=== PATIENT | female | born 1980 | race Caucasian/White ===

== ENCOUNTER 2017-06-21 11:35 | Emergency (ER) | payer MEDICAID ==
[2017-06-21 11:41] VITALS: TEMP 97.9
[2017-06-21 12:49] LABS: COLOR YELLOW; LEUKOCYTE ESTERASE,URINE 1+ (NEGATIVE); NITRITE,URINE NEGATIVE (NEGATIVE)
[2017-06-21 13:04] LABS: MUCUS TRACE /lpf (NONE-1+)
--- NOTE | 2017-06-21 13:04 | EDPHY ---
General Narrative: CHIEF COMPLAINT: Finger injury, urinary complaints HISTORY OF PRESENT ILLNESS: Patient is 2 complaints. The 1st is a right middle finger injury. She became upset yesterday when working with a backpack and punched it. She sustained a laceration over the right middle finger PIP joint. Minimally painful. Worse with flexion. No numbness or tingling distally. No hand or wrist pain. No elbow pain. Tetanus up-to-date less than 6 years ago. She also complains of urinary tract infection. She says she can tell by the odor of the urine. She has minimal discomfort but this is totally starts for her. She says in the past this has happened and then progresses to severe infection. She says that the was been treated well with Macrobid. She has no blood in the urine. No trauma or injury. No flank pain. No nausea or vomiting. REVIEW OF SYSTEMS: Ten systems reviewed and are negative unless otherwise noted in the HPI PCP: None SPECIALISTS: None PAST MEDICAL HISTORY: Fibromyalgia, rage disorder PAST SURGICAL HISTORY: Right hand boxer's fracture repair, oral maxillofacial surgery FAMILY HISTORY: Noncontributory EXAMINATION General Appearance: Alert, no distress Head: normocephalic, atraumatic Eyes: Pupils equal and round, no conjunctival pallor or injection ENT, Mouth: Mucous membranes moist. Airway patent Neck: Normal inspection, supple, non-tender Respiratory: No retractions or distress. Cardiovascular: Regular rate. Pulses intact distally. Brisk cap refill the fingers of the right hand. Gastrointestinal: Abdomen is soft and nontender. No rigidity or distention. Neurological: A&O, nonfocal, normal gait. Good strength of the interossei on the right hand. No wrist drop Skin: Warm and dry, no rash. Superficial laceration of the right middle finger , dorsally over the PIP. There is no exposure of the extensor tendon. No foreign body. This is subacute in appearance. No bleeding. Neurovascular intact distal to the laceration Extremities: Mild tenderness of the right middle finger posteriorly. There is no tenderness of the hand or right snuffbox. Range of motion is fully intact without deficit. No deformity or angular rotation of the fingers. Psychiatric: Mood and affect normal DIFFERENTIAL DIAGNOSES: Including but not limited to sprain, superficial laceration, laceration, fracture, UTI MDM: 1:05 p.m. Right middle finger punch injury with superficial laceration over PIP. x-ray ordered. Neuro intact distal to this. Urinary complaints with evidence of UTI. Symptoms are consistent with her previous UTIs, thus I will treat her empirically with urine culture pending. Her laceration is well outside the window for primary closure. Additionally, it is superficial enough that it could be treated with Steri-Strips and delayed closure. Tetanus is up-to-date. 1:40 p.m. X-ray reveals no acute fracture or dislocation. The finger laceration has been irrigated copiously. I will not close this by primary closure due to the delayed presentation. I will place her on antibiotics for the urinary tract infection. The will be covered with Steri-Strips and we will splint the finger. She is to remove the splint in 5-7 days. The stay should she be left in place until falls off naturally. ER precautions for any redness, purulence, pain in the finger. She is comfortable with this plan. I provided hand surgeon referral for. I have ordered a urine culture due to her recurrent UTIs. She is discharged in stable condition, neurovascular intact - History Smoking Status: Current every day smoker - Objective Vital Signs: Initial Vital Signs Temperature (C) 97.9 F 06/21/17 11:37 Heart Rate 99 06/21/17 11:37 Respiratory Rate 18 06/21/17 11:37 Blood Pressure 121/73 H 06/21/17 11:37 O2 Sat (%) 95 06/21/17 11:37 O2 Delivery Mode Room Air Allergies/Adverse Reactions: lithium Allergy (Uncoded 06/21/17 11:41) Home Medications: Medication Instructions Recorded Nitrofurantoin Monohyd/M-Cryst 100 mg PO BID #14 capsule 06/21/17 [Macrobid 100 mg Capsule] Departure - Departure Disposition: Home, Routine, Self-Care Clinical Impression: UTI (urinary tract infection), Laceration of middle finger with delay in treatment, Sprain of finger of right hand Condition: Good Instructions: Urinary Tract Infection in Women (ED), Finger Sprain (ED), Laceration Without Closure (ED) Additional Instructions: 1. Medication as prescribed to completion 2. Follow up with hand surgeon for the right finger injury 3. ED precautions as discussed Referrals: NONE *PRIMARY CARE P,. [Primary Care Provider] - As per Instructions [facility],. [Clinic] - As per Instructions Abhi Petty MD [Medical Doctor] - As per Instructions Prescriptions: Nitrofurantoin Monohyd/M-Cryst [Macrobid 100 mg Capsule] 100 mg PO BID #14 capsule
[2017-06-21 13:06] LABS: RBC,URINE NONE SEEN /hpf (0-3)
[2017-06-21 13:52] VITALS: BP 108/73; PULSE 84; RESP 16; O2SAT 98
== END 2017-06-21 14:07 | disposition home or self-care (01) ==
DX: S61.212A Laceration without foreign body of right middle finger without damage to nail, initial encounter (principal); S63.612A Unspecified sprain of right middle finger, initial encounter; N39.0 Urinary tract infection, site not specified; F17.200 Nicotine dependence, unspecified, uncomplicated; W22.8XXA Striking against or struck by other objects, initial encounter

== ENCOUNTER 2018-09-26 16:24 | Emergency (ER) | payer MEDICAID ==
[2018-09-26 16:34] VITALS: BP 101/61
--- NOTE | 2018-09-26 17:06 | EDPHY ---
H & P Stated Complaint: VARIABLE INF LESIONS OVER BODY L BREAST AND AXILLA Time Seen by Provider: 09/26/18 16:55 HPI/ROS: CHIEF COMPLAINT: Multiple skin lesions, left breast erythema times 3-5 days HISTORY OF PRESENT ILLNESS: 37-year-old female up-to-date tetanus, denies IV drug use or methamphetamine abuse, complaining of multiple nonpruritic skin lesions to her arms as well as to her left breast. She has been picking at these areas. She denies known history of MRSA but does state that the person she has been staying with has history of cutaneous MRSA. She denies: Fever, chills, flu-like symptoms, chest pain, back pain, abdominal pain, intraoral lesions, genitalia lesions, sloughing of skin, itching. PRIMARY CARE PROVIDER: [facility] REVIEW OF SYSTEMS: 10 systems reviewed and negative with the exception of the elements mentioned in the history of present illness PAST MEDICAL & SURGICAL HISTORY: No pertinent medical or surgical history . Tetanus up-to-date. No IV drug use history. No known cutaneous MRSA history. SOCIAL HISTORY: No IV drug use history PHYSICAL EXAM (Prior to examination, patient consented to physical exam, hands were washed and my usual and customary physical exam procedures followed) 1) GENERAL: Well-developed, well-nourished, alert and oriented. Appears to be in no acute distress. Appears nontoxic 2) HEAD: Normocephalic, atraumatic 3) HEENT: Pupils equal, round, reactive to light bilaterally. Sclera anicteric. Nasopharynx, oropharynx, clear, no lesions. Moist mucous membranes. No lesions. 4) NECK: Full range of motion, no meningeal signs. 5) LUNGS: Clear auscultation bilaterally, no wheezes, no rhonchi, no retractions. 6) HEART & CHEST WALL (with nurse Mindy at bedside): On the patient's left breast between the 1:00 a.m. and 3:00 a.m. positions he has erythema. There is no fluctuance. No crepitus. No drainage. Tender to palpation left axilla with no definitive adenopathy. Regular rate and rhythm, no murmur, no heave, no gallop. 7) ABDOMEN: No guarding, no rebound, no focal tenderness, negative McBurney's, negative Hutchinson's, negative Rovsing's, negative peritoneal sign, 8) MUSCULOSKELETAL: Bilateral upper extremities multiple for ocular lesions with no lymphangitic streaking. No crepitus. Distal neurovascular status is normal with brisk pulses. Soft compartments. Full pain-free range of motion all joints of the upper extremities. Otherwise, Moving all extremities, no focal areas of tenderness, no obvious trauma. No peripheral edema or discoloration. 9) BACK: No CVA tenderness, no midline vertebral tenderness, no fluctuance, no step-off, no obvious trauma, no visual or palpable abnormality. 10) SKIN: No rash, no petechiae. 11) Psychiatric: Patient is oriented X 3, there is no agitation. DIFFERENTIAL DIAGNOSIS: [ In no particular order including but not limited to necrotizing fasciitis, mastitis, furunculosis, carbunculosis - Personal History LMP (Females 10-55): Now Current Tetanus Diphtheria and Acellular Pertussis (TDAP): Yes - Medical/Surgical History Hx Asthma: No Hx Chronic Respiratory Disease: No Hx Diabetes: No Hx Cardiac Disease: No Hx Renal Disease: No Hx Cirrhosis: No Hx Alcoholism: No Hx HIV/AIDS: No Hx Splenectomy or Spleen Trauma: No Other PMH: UTI's. fibromyalgia. - Social History Smoking Status: Current every day smoker Constitutional: Initial Vital Signs Temperature (C) 36.9 C 09/26/18 16:32 Heart Rate 101 H 09/26/18 16:32 Respiratory Rate 18 09/26/18 16:32 Blood Pressure 101/61 09/26/18 16:32 O2 Sat (%) 99 09/26/18 16:32 O2 Delivery Mode Room Air Allergies/Adverse Reactions: lithium Allergy (Uncoded 09/26/18 16:31) Home Medications: Medication Instructions Recorded Cephalexin [Keflex] 500 mg PO TID 10 Days cap 09/26/18 Sulfamethox/Tmp 800/160 mg 1 tab PO BID@1000,2200 10 Days tab 09/26/18 [Bactrim Ds] Medical Decision Making ED Course/Re-evaluation: 5:03 p.m.: Patient has multiple for angular lesions on her bilateral forearms as well as an area of erythema left breast region between 1:00 a.m. And 3:00 a.m.. There is no nipple discharge. No fever no chills. At this time I do not think that hospitalization is indicated. I have recommended initiation of oral antibiotic therapy. Dual therapy Bactrim and Keflex. Today is Saturday. Recommend recheck on Saturday with her PCP. In the Meantime given my usual customary wound precautions instructions. Care of patient under supervision secondary supervising physician Dr Bond . Departure - Departure Disposition: Home, Routine, Self-Care Clinical Impression: Furuncle of upper arm Condition: Good Instructions: Furunculosis and Carbunculosis (ED) Additional Instructions: Return to the ER if you develop redness, swelling, discharge, warmth to the wound, red streaks going up your arm, fever, chills, or any other symptoms that concern you. Referrals: [facility],. [Clinic] - 09/29/18 Prescriptions: Cephalexin [Keflex] 500 mg PO TID 10 Days cap Sulfamethox/Tmp 800/160 mg [Bactrim Ds] 1 tab PO BID@1000,2200 10 Days tab
== END 2018-09-26 17:21 | disposition home or self-care (01) ==
DX: L02.423 Furuncle of right upper limb (principal); L02.424 Furuncle of left upper limb

== ENCOUNTER 2018-11-19 09:11 | Emergency (ER) | payer MEDICAID ==
[2018-11-19 09:20] VITALS: BP 154/100
--- NOTE | 2018-11-19 09:25 | EDPHY ---
H & P Time Seen by Provider: 11/19/18 09:24 HPI/ROS: CHIEF COMPLAINT: Mental health hold HISTORY OF PRESENT ILLNESS: Patient arrives on a mental health hold by police. According to the hold her boyfriend said that she "threatened to kill herself if he kicked her out of his apartment."Patient says she has schizoaffective disorder and has been off medications for 2 years. She says that she feels like "nobody cares" and she has nothing to live for. She says she currently denies suicidal ideation or plan. No recent medical issues except intermittent chest tightness with her anxiety over the past week. REVIEW OF SYSTEMS: Eye: no change in vision ENT: no sore throat Cardiac: No palpitations or syncope Pulmonary: no cough or SOB Abdomen: no vomiting, diarrhea, abdominal pain Musculoskeletal: no back pain Skin: no rash Neuro: no headache Constitutional: no fever : no urinary symptoms A comprehensive 10 point review of systems is otherwise negative aside from elements mentioned in the history of present illness. PAST MEDICAL HISTORY: Includes bipolar disorder, PTSD, previous UTI Social history: Denies alcohol, smokes marijuana General Appearance: Alert and conversant, cooperative. Eyes: No scleral icterus. ENT, Mouth: Normal mucous membranes. Respiratory: Normal respiratory effort, breath sounds equal, lungs are clear to auscultation. No wheezing. Cardiovascular: Regular rate and rhythm. Gastrointestinal: Abdomen is soft and non tender. Neurological: Alert, face symmetric, normal motor and sensory in extremities. Skin: Warm and dry, no rashes. Musculoskeletal: No peripheral edema. Psychiatric: Moderately anxious. Emergency Department course/MDM: Arrives on a mental health hold. Appears clinically sober. Does not have urinary symptoms. Plan for screening labs and mental health evaluation. 1353: Patient had mental health evaluation and is the recommendation of the drying machine tender and the plan consultant psychiatrist Dr. Hola Ortega the hold be lifted the patient be discharged. Does not appear to be a danger to herself or gravely disabled or a danger to others at this time. Referred to [facility]. Smoking Status: Current every day smoker Constitutional: Initial Vital Signs Temperature (C) 36.5 C 11/19/18 09:15 Heart Rate 108 H 11/19/18 09:15 Respiratory Rate 18 03/20/19 09:15 Blood Pressure 154/100 H 11/19/18 09:15 O2 Sat (%) 96 11/19/18 09:15 O2 Delivery Mode Room Air Allergies/Adverse Reactions: lithium Allergy (Uncoded 09/26/18 16:31) Home Medications: Medication Instructions Recorded NK [No Known Home Meds] 11/19/18 Medical Decision Making - Data Points Laboratory Results: Laboratory Results 11/19/18 09:50 11/19/18 09:50 11/19/18 11/19/18 11/19/18 11:00 09:50 09:50 WBC RBC Hgb Hct MCV MCH MCHC RDW Plt Count MPV Neut % (Auto) Lymph % (Auto) Mcdonald % (Auto) Eos % (Auto) Baso % (Auto) Nucleat RBC Rel Count Absolute Neuts (auto) Absolute Lymphs (auto) Absolute Monos (auto) Absolute Eos (auto) Absolute Basos (auto) Absolute Nucleated RBC Immature Gran % Immature Gran # Sodium 139 mEq/L mEq/L (135-145) Potassium 4.0 mEq/L mEq/L (3.5-5.2) Chloride 106 mEq/L mEq/L (97-110) Carbon Dioxide 24 mEq/l mEq/l (22-31) Anion Gap 9 mEq/L mEq/L (6-14) BUN 12 mg/dL mg/dL (7-23) Creatinine 0.8 mg/dL mg/dL (0.6-1.0) Estimated GFR > 60 Glucose 102 mg/dL H mg/dL (70-100) Calcium 9.9 mg/dL mg/dL (8.5-10.4) Beta HCG, Qual NEGATIVE Salicylates < 1.0 mg/dL L mg/dL (2.0-20.0) Urine Opiates Screen NEGATIVE (NEGATIVE) Acetaminophen < 10 mcg/mL L mcg/mL (10-30) Urine Barbiturates NEGATIVE (NEGATIVE) Ur Phencyclidine Scrn NEGATIVE (NEGATIVE) Ur Amphetamine Screen NEGATIVE (NEGATIVE) U Benzodiazepines Scrn NEGATIVE (NEGATIVE) Urine Cocaine Screen NEGATIVE (NEGATIVE) U Marijuana (THC) Screen NON-NEGATIVE H (NEGATIVE) Ethyl Alcohol < 10 mg/dL mg/dL (0-10) 11/19/18 09:50 WBC 14.01 10^3/uL H 10^3/uL (3.80-9.50) RBC 5.04 10^6/uL 10^6/uL (4.18-5.33) Hgb 14.7 g/dL g/dL (12.6-16.3) Hct 45.2 % % (38.0-47.0) MCV 89.7 fL fL (81.5-99.8) MCH 29.2 pg pg (27.9-34.1) MCHC 32.5 g/dL g/dL (32.4-36.7) RDW 14.0 % % (11.5-15.2) Plt Count 431 10^3/uL H 10^3/uL (150-400) MPV 9.7 fL fL (8.7-11.7) Neut % (Auto) 75.2 % H % (39.3-74.2) Lymph % (Auto) 17.7 % % (15.0-45.0) Mcdonald % (Auto) 4.8 % % (4.5-13.0) Eos % (Auto) 1.4 % % (0.6-7.6) Baso % (Auto) 0.5 % % (0.3-1.7) Nucleat RBC Rel Count 0.0 % % (0.0-0.2) Absolute Neuts (auto) 10.54 10^3/uL H 10^3/uL (1.70-6.50) Absolute Lymphs (auto) 2.48 10^3/uL 10^3/uL (1.00-3.00) Absolute Monos (auto) 0.67 10^3/uL 10^3/uL (0.30-0.80) Absolute Eos (auto) 0.19 10^3/uL 10^3/uL (0.03-0.40) Absolute Basos (auto) 0.07 10^3/uL 10^3/uL (0.02-0.10) Absolute Nucleated RBC 0.00 10^3/uL 10^3/uL (0-0.01) Immature Gran % 0.4 % % (0.0-1.1) Immature Gran # 0.06 10^3/uL 10^3/uL (0.00-0.10) Sodium Potassium Chloride Carbon Dioxide Anion Gap BUN Creatinine Estimated GFR Glucose Calcium Beta HCG, Qual Salicylates Urine Opiates Screen Acetaminophen Urine Barbiturates Ur Phencyclidine Scrn Ur Amphetamine Screen U Benzodiazepines Scrn Urine Cocaine Screen U Marijuana (THC) Screen Ethyl Alcohol Departure - Departure Disposition: Home, Routine, Self-Care Clinical Impression: Bipolar 1 disorder Condition: Good Instructions: Bipolar Disorder (ED) Referrals: [facility],. [Clinic] - As per Instructions [facility],. [Clinic] - As per Instructions
[2018-11-19 10:14] LABS: PLATELET COUNT 431 10^3/uL (150-400)
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
--- NOTE | 2018-11-20 06:12 | ASMTTCLDSP ---
TLC Discharge Disposition Disposition: Answers: Discharge If Answers: Yes DISCHARGED: Patient/family given suicide hotline info & SAMHSA brochure? Disposition Notes: Notes: Pt was offered voluntary mental health admission yet pt declined. Pt stated commitment or ability to keep self safe, denied thoughts of self harm or harm to others. Pt expressed a desire to f/u with [facility] to try to get back on her medications and follow up with [facility]. Pt was given local hotline information and [facility] After an Attempt and encouraged to follow up with [facility] and [facility]. Discharge Concerns/Recommendations: Notes: In consultation with [facility] ED physician, Shabbir Horton MD, Dr. Horton concurred that pt does not appear to meet 27-65 criteria requiring psychiatric hospitalization as pt does not appear to be an imminent risk of harm to self/others/gravely disabled due to a mental illness condition. Dr. Horton entered order vacating M1 hold at 1354 hours. Was patient given the Answers: Not applicable Inpatient Behavioral Health Prohibited Belongings List while in the ED? Psychiatrist vacating M1 Shabbir Horton MD Hold: Date and time M1 hold 11/19/2018 01:54 PM vacated (time format is hh:mm): Type of Hold: Answers: M1/72-hour Hold Hold initiated by: Answers: Police Date Signed: 11/20/2018 06:11 AM Electronically Signed By:Joaquim Cohen
== END 2018-11-19 14:10 | disposition home or self-care (01) ==
DX: R45.851 Suicidal ideations (principal); F31.9 Bipolar disorder, unspecified
CPT/HCPCS: 80305; G0480

== ENCOUNTER 2018-11-20 14:53 | Emergency (ER) | payer MEDICAID ==
--- NOTE | 2018-11-20 15:23 | EDPHY ---
H & P Stated Complaint: needs help psych meds Time Seen by Provider: 11/20/18 15:23 HPI/ROS: HPI CHIEF COMPLAINT: "I am manic" HISTORY OF PRESENT ILLNESS: This is a 37-year-old female, she states she has a history of bipolar disorder, and off of her medications. She was just here yesterday on M1 hold for suicidal ideation however subsequently evaluated and released. She denies being suicidal but she presents back to the emergency room stating that she is "very manic" and wants to speak with mental health. Past Medical History: Significant medical history for bipolar disorder, PTSD, previous UTI Past Surgical History: Denies recent surgical history Social History: Denies current use of alcohol or drugs. Family History: ROS REVIEW OF SYSTEMS: 10 Systems were reviewed and negative with the exception of the elements mentioned in the history of present illness. Exam Constitutional triage nursing summary reviewed, vital signs reviewed, awake/ alert. Eyes normal conjunctivae and sclera, EOMI, PERRLA. HENT normal inspection, atraumatic, moist mucus membranes, no epistaxis, neck supple/ no meningismus, no raccoon eyes. Respiratory clear to auscultation bilaterally, normal breath sounds, no respiratory distress, no wheezing. Cardiovascular rate normal, regular rhythm, no murmur, no edema, distal pulses normal. Gastrointestinal soft, non-tender, no rebound, no guarding, normal bowel sounds, no distension, no pulsatile mass. Genitourinary no CVA tenderness. Musculoskeletal no midline vertebral tenderness, full range of motion, no calf swelling, no tenderness of extremities, no meningismus, good pulses, neurovascularly intact. Skin pink, warm, & dry, no rash, skin atraumatic. Neurologic awake, alert and oriented x 3, AAOx3, moves all 4 extremities equally, motor intact, sensory intact, CN II-XII intact, normal cerebellar, normal vision, normal speech. Psychiatric denies SI or HI. Heme/Lymph/Immune no lymphadenopathy. Differential Diagnosis: Includes but is not limited to in a particular order bipolar disorder, acute ritu, psychosis, malingering, longterm seeking, drug intoxication Medical Decision Making: Plan for this patient IV establishment IV fluid bolus , basic labs, will have mental health evaluate the patient the patient is voluntary. Re-evaluation: Patient does not appear manic here in the Er, however she is asking to speak with mental health. She denies SI or HI. Denies VH or AH. Patient does not meet criteria for m1 hold. Patient will be voluntary to speak with mental health 11pm: mental health has seen and evaluated Patient. Dr. Beltre was consulted. Does not meet criteria for inpatient Pyschiatric admission. Went to go update patient on plan for ATU placement. However patient left before I could talk to her, nursing staff states she had a friend pick her up from ER. Patient was voluntary and denies SI or HI or VH or AH. Source: Patient - Personal History LMP (Females 10-55): 22-28 Days Ago Current Tetanus/Diphtheria Vaccine: Yes Current Tetanus Diphtheria and Acellular Pertussis (TDAP): Yes - Medical/Surgical History Hx Asthma: No Hx Chronic Respiratory Disease: No Hx Diabetes: No Hx Cardiac Disease: No Hx Renal Disease: No Hx Cirrhosis: No Hx Alcoholism: No Hx HIV/AIDS: No Hx Splenectomy or Spleen Trauma: No Other PMH: UTI's. fibromyalgia.Bipolar. Sch[place]o effective DX. Depression. PTSD. - Social History Smoking Status: Current every day smoker Constitutional: Initial Vital Signs Temperature (C) 36.8 C 11/20/18 15:03 Heart Rate 96 11/20/18 15:03 Respiratory Rate 18 11/20/18 15:03 Blood Pressure 104/62 11/20/18 15:03 O2 Sat (%) 99 11/20/18 15:03 O2 Delivery Mode Room Air Allergies/Adverse Reactions: lithium Allergy (Uncoded 09/26/18 16:31) Home Medications: Medication Instructions Recorded NK [No Known Home Meds] 11/19/18 Medical Decision Making - Data Points Laboratory Results: Laboratory Results 11/20/18 16:12 11/20/18 16:12 Medications Given: Discontinued Medications Sodium Chloride (Ns) 1,000 mls @ 0 mls/hr IV ONCE ONE PRN Reason: Wide Open Stop: 11/20/18 16:03 Last Admin: 11/20/18 16:39 Dose: 1,000 mls Departure - Departure Disposition: Against Medical Advice Clinical Impression: Bipolar disorder Qualifiers: Active/Remission status: currently active Current bipolar episode type: depressed Current episode severity: mild Qualified Code(s): F31.31 - Bipolar disorder, current episode depressed, mild Condition: Fair Instructions: [facility] Referrals: NONE *PRIMARY CARE P,. [Primary Care Provider] - As per Instructions [facility] [[facility]inic] - As per Instructions
[2018-11-20] MEDS ORDERED: NS 1,000 ML IV ONE (16:02)
[2018-11-20 16:30] LABS: PLATELET COUNT 423 10^3/uL (150-400)
--- NOTE | 2018-11-20 19:18 | ASMTTCLDSP ---
TLC Discharge Disposition Disposition: Answers: Discharge If Answers: Yes DISCHARGED: Patient/family given suicide hotline info & SAMHSA brochure? Disposition Notes: Notes: Pt was given resources to [facility] and [facility]. Pt was very upset when being discharged and threw the paperwork on the floor. Discharge Concerns/Recommendations: Notes: In consultation with [facility] ED physician, Wiliam Muñiz MD, and on-call psychiatrist, Lola Beltre MD, both concurred that pt does not appear to meet 27-65 criteria requiring psychiatric hospitalization as pt does not appear to be an imminent risk of harm to self/others/gravely disabled due to a mental illness condition. Date Signed: 11/20/2018 07:18 PM Electronically Signed By:Rosalina Restrepo
[2018-11-20 19:20] VITALS: BP 155/78
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
--- NOTE | 2018-11-20 19:27 | ASMTLCPROG ---
Notes Note: Notes: This typewriter ribbon winder was seeking ATU level of care for pt but pt stated she found a friend to stay with and wanted to leave the hospital. Pt appeared highly agitated and stated, " You guys don't want to help me." Pt was given resources to [facility] and [facility] but she threw it on the floor. Date Signed: 11/20/2018 07:26 PM Electronically Signed By:Rosalina Restrepo
== END 2018-11-20 19:21 | disposition left against medical advice (07) ==
DX: F31.31 Bipolar disorder, current episode depressed, mild (principal); F25.9 Schizoaffective disorder, unspecified; F43.10 Post-traumatic stress disorder, unspecified; M79.7 Fibromyalgia
CPT/HCPCS: 80305; G0480